=== PATIENT | female | born 1980 | race African-American/Black ===

== ENCOUNTER 2019-07-25 12:38 | Outpatient (CLI) | payer OTHER ==
--- NOTE | 2019-07-25 14:14 | MRI ---
MRI OF THE LUMBAR SPINE WITHOUT CONTRAST: 07/25/19 HISTORY: Lumbar spondylosis. Low back pain. COMPARISON: None. FINDINGS: The aortic contour is nonaneurysmal. Multiple left adnexal cysts. There is anterior end plate Schmorl's node of L5 and superior end plate Schmorl's node of S1 with Mod ic III end plate changes. There is a linear low signal on the mid S1 vertebral body. There is also ab normal decreased signal in the left sacrum, S1, SI joint without SI joint edema. The conus medullaris terminates near the superior end plate of L1. Levels are as follows: L1-2: Normal disc. No neural foraminal or spinal canal narrowing. L2-3: Normal disc. No neural foraminal or spinal canal narrowing. L3-4: Mild degenerative disc space height loss. Small disc bulge. Low grade facet arthrosis. Mild mini ateral neural foraminal narrowing. L4-5: Mild posterior degenerative disc space height loss without desiccation. Small posterior disc os teophyte complex. There is moderate left and mild right neural foraminal narrowing with abutment of t he left exiting nerve root. L5-S1: Advanced degenerative disc space height loss. Circumferential disc osteophyte complex. Modera te facet arthrosis. Moderate to severe left and moderate right neural foraminal narrowing with abutme nt of both exiting nerve roots and the left traversing nerve root. IMPRESSION: 1. Spondylosis centered at L4-5 and L5-S1, advanced for age at L5-S1. 2. Linear area of sclerosis through the S1 vertebral body. There is sequela of Modic end plate c hanges although CT examination is recommended. Other possibility is a healing fracture although is fe lt less likely. 3. Loss of normal T1 and T2 signal of the left sacrum near the SI joint suggesting sclerosis. CT of the pelvis recommended for further evaluation. This could be sequela of patient's history of prio r trauma or asymmetric sacroiliitis with preferential sacral involvement. POS: HOME
== END 2019-07-25 12:39 | disposition home or self-care (01) ==
LOC: BICMRI 12:38
PROVIDERS: ATTEND Neurological Surgery
DX: M47.816 Spondylosis without myelopathy or radiculopathy, lumbar region (principal); M47.817 Spondylosis without myelopathy or radiculopathy, lumbosacral region; G95.89 Other specified diseases of spinal cord
CPT/HCPCS: 72148

== ENCOUNTER 2019-07-25 12:48 | Outpatient (CLI) | payer OTHER ==
--- NOTE | 2019-07-25 13:59 | RAD ---
RADIOGRAPH LUMBAR SPINE 4 VIEWS: DATE: 07/25/2019 HISTORY: 39-year-old female with low back pain and lumbar spondylosis. TECHNIQUE: All weightbearing views. 3 lateral views in flexion, extension, and neutral. AP view. FINDINGS: There are 5 lumbar-type vertebrae. No spondylolisthesis and no instability between flexion and extens ion.. Vertebral body heights and the rest of the disc spaces are maintained. There is no evidence of fracture. Moderate disc space narrowing at L5-S1 with mild vacuum disc phenomenon, endplate sclero sis, and endplate osteophytosis. Minimal lateral curvature at thoracolumbar junction. IMPRESSION: Degenerative disc disease at L5-S1.
== END 2019-07-25 12:49 | disposition home or self-care (01) ==
LOC: BICRAD 12:48
PROVIDERS: ATTEND Neurological Surgery
DX: M47.816 Spondylosis without myelopathy or radiculopathy, lumbar region (principal); M51.37 Other intervertebral disc degeneration, lumbosacral region
CPT/HCPCS: 72110

== ENCOUNTER 2019-08-07 10:03 | Outpatient (CLI) | payer OTHER ==
--- NOTE | 2019-08-07 10:40 | CT ---
PELVIC CT WITHOUT CONTRAST: HISTORY: Abnormal signal intensity in the S1 vertebral body noted on recent MRI. COMPARISON: None. CORRELATION: Lumbar spine MRI 07/25/2019. FINDINGS: Visualized solid organs and alimentary canal have an overall normal attenuation and appearance. Uteru s and adnexal structures do not demonstrate any acute abnormality. No mucosal abnormality in the visualized urinary bladder. Presacral fat is preserved. Intact bilateral obturator rings. Mild degenerative change of the symphysis pubis. Contour of bilateral femoral heads is maintained. No significant loss of hip joint space height. Intact bilateral iliac wings. Vacuum joint phenomenon in bilateral sacroiliac joints. Mild sclerosis involving both SI joints, left greater than right.. Vacuum disc phenomenon and sclerosis along with osteophyte formation at L5-S1. No spondylolisthesis o r spondylolysis. Sacral alae are preserved. No evidence of a sacral fracture. IMPRESSION: Type III Modic changes noted in the lumbosacral junction on previous MRI has corresponding vacuum dis c phenomenon, osteophyte formation and sclerosis. The signal intensities noted on recent MRI correspond to sclerosis from degenerative change. No sacral fracture. Transcribed Date/Time: 08/07/2019 11:12 AM
== END 2019-08-07 10:04 | disposition home or self-care (01) ==
LOC: BICCT 10:03
PROVIDERS: ATTEND Neurological Surgery
DX: M53.3 Sacrococcygeal disorders, not elsewhere classified (principal); G95.89 Other specified diseases of spinal cord; M25.78 Osteophyte, vertebrae; M47.817 Spondylosis without myelopathy or radiculopathy, lumbosacral region
CPT/HCPCS: 72192